=== PATIENT | male | born 1970 | race Caucasian/White ===

== ENCOUNTER 2017-05-17 12:34 | Emergency (ER) | payer OTHER ==
[~2017-05-17] VITALS: Ht 180.3 cm; Wt 104.3 kg
[~2017-05-17 12:34] MED LIST: BACTRIM DS TAB1 EACH PO; ENALAPRIL MALEAT5 M1 PO; IBUPROFEN 800800 MG PO; VERAMYST10 GM
[2017-05-17 13:23] LABS: INFLUENZA A ANTIGEN None Detected (None Detect); INFLUENZA B ANTIGEN None Detected (None Detect)
[2017-05-17] MEDS ORDERED: LOVASTATIN 20 M20 MG PO (13:49)
[2017-05-17] MEDS ORDERED: ASPIR 8181 MG PO (13:49)
[2017-05-17] MEDS ORDERED: LISINOPRIL10 MG PO (13:49)
[2017-05-17] MEDS ORDERED: VENTOLIN HFA 1818 GM INH (14:06)
[2017-05-17] MEDS ORDERED: TESSALON PERLE100 MG PO (14:06)
[2017-05-17] MEDS ORDERED: PREDNISONE 10 M10 MG PO (14:06)
[2017-05-17 14:12] VITALS: BP 138/90
== END 2017-05-17 14:13 | disposition home or self-care (01) ==
LOC: M.ERS 12:34
PROVIDERS: Nurse Practitioner Family
DX: J40 Bronchitis, not specified as acute or chronic (principal); R05 Cough; I10 Essential (primary) hypertension; E78.00 Pure hypercholesterolemia, unspecified

== ENCOUNTER 2018-03-25 21:33 | Emergency (ER) | payer OTHER ==
[~2018-03-25] VITALS: Ht 180.3 cm; Wt 104.3 kg
[~2018-03-25 21:33] MED LIST changes: +ASPIR 8181 MG PO; +LISINOPRIL10 MG PO; +LOVASTATIN 20 M20 MG PO; +PREDNISONE 10 M10 MG PO; +TESSALON PERLE100 MG PO; +VENTOLIN HFA 1818 GM INH
[2018-03-25] MEDS ORDERED: PRILOSEC 20 MG20 MG (21:44)
[2018-03-25] MEDS ORDERED: PREDNISONE50 MG PO (23:04)
[2018-03-25] MEDS ORDERED: PROAIR HFA8.5 GM INH (23:04)
[2018-03-25 23:15] VITALS: BP 126/88
--- NOTE | 2018-03-26 11:33 | EKG ---
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
== END 2018-03-25 23:15 | disposition home or self-care (01) ==
LOC: M.ERS 21:33
DX: J40 Bronchitis, not specified as acute or chronic (principal)